=== PATIENT | female | born 1945 | race African-American/Black ===

== ENCOUNTER 2017-11-28 07:45 | Inpatient (IN) | payer MEDICARE, OTHER ==
[2017-11-28] VITALS (16 sets, daily range): BP systolic 97–209; BP diastolic 44–93; PULSE 64–130; RESP 8–22; TEMP 97.7–98.6; O2SAT 95–100
[~2017-11-28] VITALS: Ht 167.6 cm; Wt 103.1 kg
[~2017-11-28 07:45] MED LIST: AMLO5TAB96 PO; ASPI81 PO; BUME1TAB PO; CLOP75 PO; GABA100C4 PO; GLIP5 PO; GUAN1TAB PO; LORT5TAB PO; METO25CR OR; RISP0.252 OR; SINE25TA PO
[2017-11-28] MEDS ORDERED: SODI650T PO (08:06)
[2017-11-28] MEDS ORDERED: SEVEL800 PO (08:06)
[2017-11-28] MEDS ORDERED: VITA2000 PO (08:06)
[2017-11-28] MEDS ORDERED: FURO40TA PO (08:06)
[2017-11-28] MEDS ORDERED: METO100T PO (08:06)
[2017-11-28] MEDS ORDERED: SENS90TA PO (08:06)
--- NOTE | 2017-11-28 08:44 | PD ---
HPI Chief Complaint: Bleeding Time Seen by Provider: 08:02 Travel History International Travel<30 days: No Contact w/Intl Traveler<30days: No Traveled to known affect area: No History of Present Illness HPI The patient is a 72-year-old [place] female who presents emergency department for bleeding from a right upper extremity AV fistula. The patient had a fistula placed in [address] Handley. The patient goes to dialysis on Tuesdays, , and Saturdays. The family thinks that the patient's rn intern is Dr. Wright. The patient had dialysis yesterday, noticed bleeding from the right upper extremity earlier today. They did apply dressings to the affected area prior to arrival. The patient denies taking any anticoagulants. She denies any pain from the affected area, but does note the bleeding was brisk. She denies any chest pain, shortness of breath, nausea, vomiting, or abdominal pain. The patient currently has a home health care doctor that sees her at the house, she no longer sees Dr. Wynn. [facility] Past Medical History Arthritis: No Asthma: No Autoimmune Disease: No Blood Disorders: No Anxiety: No Depression: No Heart Rhythm Problems: No Cancer: No Cardiovascular Problems: Yes (HEART TROUBLE) High Cholesterol: No Chemotherapy: No Chest Pain: Yes Congestive Heart Failure: Yes COPD: No Cerebrovascular Accident: No Diabetes: Yes Patient Takes Glucophage: No Dialysis: Yes (Wed ) Diminished Hearing: No Endocrine: No Glaucoma: No Genitourinary: No Headaches: No Hypertension: Yes Kidney Stones: No Musculoskeletal: No Neurologic: Yes Psychiatric: No Respiratory: Yes (SOB ON EXERTION) Myocardial Infarction: No Radiation Therapy: No Renal Failure: No Seizures: Yes Sickle Cell Disease: No Sleep Apnea: No Thyroid Disease: No Tetanus Vaccination: > 5 Years Influenza Vaccination: No Tubal Ligation: Yes (1975) Past Surgical History Abdominal Surgery: No AICD: No Cardiac Surgery: No Ear Surgery: No Endocrine Surgery: Yes (PT IS A DIABETIC) Eye Surgery: No Genitourinary Surgery: No Gynecologic Surgery: No Oral Surgery: No Pacemaker: No Thoracic Surgery: No Other Surgery: Yes (? CLOSED ARTERIES ON MY LEFT SHOULDER) Social History Alcohol Use: No Tobacco Use: No Substance Use: No Allergies-Medications (Allergen,Severity, Reaction): Coded Allergies: penicillin G (Unverified Allergy, Mild, HIVES, 8/15/17) Reported Meds & Prescriptions Reported Meds & Active Scripts Active Reported Metoprolol Tartrate 100 Mg Tab 100 Mg PO DAILY Vitamin D3 (Cholecalciferol) 2,000 Unit Cap 2,000 Units PO DAILY Renvela (Sevelamer Carbonate) 800 Mg Tab 800 Mg PO TID Sodium Bicarbonate 650 Mg Tab 650 Mg PO BIDPC Sensipar (Cinacalcet) 90 Mg Tab 90 Mg PO DAILY Furosemide 40 Mg Tab 40 Mg PO DAILY Review of Systems Except as stated in HPI: all other systems reviewed are Neg Cardiovascular: No: Chest Pain or Discomfort Respiratory: No: Shortness of Breath Gastrointestinal: No: Nausea, Vomiting, Abdominal Pain Genitourinary: Positive: Decreased Urinary Output (history of end-stage renal disease on hemodialysis) Musculoskeletal: Positive: Other (bleeding from right upper extremity AV fistula) Neurologic: No: Dizziness Physical Exam Narrative GENERAL: Awake, alert, 72 year-old female who appears her stated age and is in no acute respiratory distress. SKIN: Focused skin assessment warm/dry. HEAD: Atraumatic. Normocephalic. EYES: No injection or drainage. ENT: No nasal bleeding or discharge. Mucous membranes pink and moist. NECK: Trachea midline. No JVD. CARDIOVASCULAR: Regular rate and rhythm. No murmur appreciated. RESPIRATORY: No accessory muscle use. Clear to auscultation. Breath sounds equal bilaterally. GASTROINTESTINAL: Abdomen soft, non-tender, nondistended. MUSCULOSKELETAL: Right upper extremity AV fistula with positive thrill and bruit. 1.5 cm circular ulcer on the proximal aspect of the fistula with dry blood on surrounding meningitidis noted. NEUROLOGICAL: Awake and alert. No obvious cranial nerve deficits. Motor grossly within normal limits. Normal speech. PSYCHIATRIC: Appropriate mood and affect; insight and judgment normal. Data Data Last Documented VS Vital Signs Date Time Temp Pulse Resp B/P (MAP) Pulse Ox O2 Delivery O2 Flow Rate FiO2 11/28/17 09:13 98.0 11/28/17 09:11 118 22 99 11/28/17 09:00 Ventilator 100 11/28/17 08:45 2.00 Orders Orders Complete Blood Count With Diff (11/28/17 08:26) Basic Metabolic Panel (Bmp) (11/28/17 08:26) Act Partial Throm Time (Ptt) (11/28/17 08:26) Prothrombin Time / Inr (Pt) (11/28/17 08:26) Type And Screen (11/28/17 08:58) Desmopressin Inj (Ddavp Inj) (11/28/17 09:15) Midazolam Inj (Versed Inj) (11/28/17 09:12) Phenylephrine Inj (Neosynephrine Inj) (11/28/17 09:16) Admit Order (Ed Use Only) (11/28/17 09:18) Consult Vascular Surgery (11/28/17 ) MDM Medical Decision Making Medical Screen Exam Complete: Yes Emergency Medical Condition: Yes Medical Record Reviewed: Yes Differential Diagnosis Differential diagnoses includes coagulopathy, AV fistula bleed, thrombocytopenia , anemia, arterial bleed. Narrative Course IV was established, labs are drawn and sent, and the patient was placed on cardiac telemetry monitoring and continuous pulse oximetry monitoring. The patient's bleeding had resolved upon arrival, I discussed the patient with her vascular surgeon, Dr. Handley. The plan was for the patient to be admitted, permacath to be placed in the right neck, and revision of the right upper AV fistula to be planned. However, the patient had another episode of bleeding that was significant, she had a brief loss of consciousness with subsequent tachycardia and hypertension. The family was removed from the room so resuscitation process could be started. A tight pressure dressing was applied to the right upper extremity. She continued to bleed, tourniquet was applied. The patient did lose consciousness, didn't wake up, was able to open her eyes and follow commands, however, secondary to the hypotension and tachycardia with possible loss of airway, the patient was intubated using rapid sequence intubation. The patient was administered etomidate and rocuronium. The patient was intubated using a 7.[address] Wall, the order editor , was in the room, placed a cordis into the left internal jugular. The patient was administered emergency release blood. Patient was hypotensive, was administered phenylephrine 100 mics intravenously and we administer the patient DDAVP 0.3 mg/kg, total of 30 mg over 30 minutes. I discussed the patient with Dr. Handley, who unfortunately is out of town, he requests that I contact the on- call vascular surgeon. I discussed the patient with Dr. So, who will take the patient to the operating room. The tourniquet time was started. The patient will go to the operating room and then the intensive surgical care unit. I did discuss these findings with the patient's family after the patient was stabilized. Critical Care Narrative Aggregate critical care time was 45 minutes. Time to perform other separately billable procedures was not included in the critical care time. My time did not include minutes spent treating any other patients simultaneously or on activities that did not directly contribute to the patient's treatment. The services I provided to this patient were to treat and/or prevent clinically significant deterioration that could result in: Anoxia, hypoxia, hemorrhage, anemia, shock, . I provided critical care services requiring my management, as noted below: Chart data review, documentation time, medication orders and management, vital sign assessments/reviewing monitor data, ordering and reviewing lab tests, ordering and interpreting/reviewing x-rays and diagnostic studies, care of the patient and discussion of the patient with the admitting physicians. Procedures Procedure Narrative INTUBATION: The patient was put in optimal position for the procedure. Rapid sequence intubation was initiated by me using 20 milligrams of etomidate IV and 100 milligrams of rocuronium IV. The patient was intubated with a 7-5 cuffed endotracheal tube. Tube placement was confirmed by visualization of the tube and balloon passing through the cords, capnometry and subsequent chest x-ray. Breath sounds were equal and well aerated bilaterally postintubation. No breath sounds over stomach. Patient tolerated procedure well. Physician Communication Physician Communication I discussed the patient with Dr. Sampson and the vascular surgeon, Dr. oS Diagnosis Primary Impression: Hemorrhage of arteriovenous fistula Qualified Codes: T82.838A - Hemorrhage due to vascular prosthetic devices, implants and grafts, initial encounter Admitting Information Admitting Physician Requests: Admit Condition: Critical Nadir Gottlieb MD Nov 28, 2017 08:44
[2017-11-28] MEDS ORDERED: MIDAZOLAM HCL 5 MG/ML VIAL (1 ML) ONE (09:12)
[2017-11-28] MEDS ORDERED: DESMOPRESSIN ACETATE 4 MCG/ML VIAL IV ONE (09:15)
[2017-11-28] MEDS ORDERED: PHENYLEPHRINE HCL 10 MG/ML VIAL ONE ×3 (09:16→18:57)
[2017-11-28] MEDS ORDERED: CALCIUM CHLORIDE 10% SOLN 1 GRAM/10 ML SYR ONE (09:25)
[2017-11-28 09:36] LABS: AUTOMATED NEUTROPHIL # 6.6 TH/MM3 (1.8-7.7); BASOPHIL # 0.1 TH/MM3 (0-0.2); BASOPHIL % 0.7 % (0.0-2.0); EOSINOPHIL # 0.4 TH/MM3 (0-0.4); EOSINOPHIL % 2.8 % (0.0-4.0); HEMATOCRIT 31.9 % (35.0-46.0); HEMOGLOBIN 10.7 GM/DL (11.6-15.3); LYMPH % 35.3 % (9.0-44.0); LYMPHOCYTE # 4.4 TH/MM3 (1.0-4.8); MEAN CELL VOLUME 84.6 FL (80.0-100.0); MEAN CORPUSCULAR HEMOGLOBIN 28.5 PG (27.0-34.0); MEAN CORPUSCULAR HGB CONC 33.7 % (32.0-36.0); MEAN PLATELET VOLUME 9.2 FL (7.0-11.0); MONO % 8.6 % (0.0-8.0); MONOCYTE # 1.1 TH/MM3 (0-0.9); NEUT % 52.6 % (16.0-70.0); PLATELET COUNT 265 TH/MM3 (150-450); RED BLOOD COUNT 3.77 MIL/MM3 (4.00-5.30); RED CELL DISTRIBUTION WIDTH 16.2 % (11.6-17.2); WHITE BLOOD COUNT 12.5 TH/MM3 (4.0-11.0)
[2017-11-28] MEDS ORDERED: ceFAZolin INJ 1,000 MG VIAL ONE (09:44)
[2017-11-28 09:45] LABS: INTERNATIONAL NORMALIZED RATIO 1.1 RATIO; PROTHROMBIN TIME - PATIENT 10.7 SEC (9.8-11.6)
[2017-11-28] MEDS ORDERED: THROMBIN (TOPICAL) 5,000 UNIT VIAL ONE (09:46)
[2017-11-28] MEDS ORDERED: GELFOAM SIZE 100 ONE (09:46)
[2017-11-28] MEDS ORDERED: PROTAMINE SULFATE 50 MG/5 ML VIAL ONE (09:46)
[2017-11-28] MEDS ORDERED: HEPARIN SODIUM - SQ 10,000 UNITS/ML VIAL ONE (09:46)
[2017-11-28 10:08] LABS: BICARBONATE 24.6 MEQ/L (21.0-32.0); CALCIUM 9.3 MG/DL (8.5-10.1); CREATININE 5.96 MG/DL (0.50-1.00)
[2017-11-28] MEDS: PHENYLEPHRINE 40 MG in D5W 500 ML IV PRN (11:00)
[2017-11-28] MEDS ORDERED: TERBUTALINE INJ 1 MG/ML AMP SQ PRN (11:30)
[2017-11-28] MEDS ORDERED: DO NOT ADM ANY ANTICOAGULANT DRUGS PRN (11:30)
[2017-11-28] MEDS ORDERED: LABETALOL HCL 100 MG/20 ML VIAL ONE (11:34)
--- NOTE | 2017-11-28 11:57 | RADRPT ---
EXAM DATE/TIME: 11/28/2017 11:28 [facility] COMPARISON: No previous studies available for comparison. INDICATIONS : ET tube placement. MEDICAL HISTORY : Non-responsive. SURGICAL HISTORY : Non-responsive. ENCOUNTER: Initial ACUITY: 1 day PAIN SCORE: Non-responsive. LOCATION: Bilateral chest FINDINGS: AP portable supine view of the chest is performed. There is an endotracheal tube with the tip identif ied just beyond the level of the clavicles, appropriately positioned. There is tubing identified jasmyne g the midline terminating just above the level of the gastroesophageal junction. This may represent a temperature probe. A proximal port is not identified. There is a vascular graft material identified within the region of the brachiocephalic artery.. The heart size is normal. The lungs appear clear. CONCLUSION: Endotracheal tube appears appropriate in position. The line overlying the middle mediastinum may repr esent a temperature probe. If this is a nasogastric tube and interval advancement is required.. Holly Cochran MD on November 28, 2017 at 11:52 Board Certified Radiologist. This report was verified electronically.
[2017-11-28] MEDS ORDERED: ROCURONIUM INJ 50 MG/5 ML SYRINGE IV PUSH ONE (12:00)
[2017-11-28] MEDS ORDERED: PHENYLEPH/NS 1000 MCG/10 ML SYR IV ONE (12:00)
[2017-11-28] MEDS ORDERED: PROPOFOL 200 MG/20 ML AMP IV ONE (12:00)
[2017-11-28] MEDS ORDERED: LACTATED RINGER'S 1000 ML INJ 1,000 ML IV ONE (12:00)
[2017-11-28] MEDS ORDERED: PHENYLEPHRINE HCL 10 MG/ML VIAL IV ONE (12:00)
[2017-11-28] MEDS ORDERED: LIDOCAINE HCL 1% PF 5 ML SYRINGE OTHER ONE (12:00)
[2017-11-28] MEDS ORDERED: NORMOSOL R INJ 1,000 ML IV ONE (12:00)
[2017-11-28] MEDS ORDERED: ePHEDrine/NS 25 MG/5 ML SYRINGE IV ONE (12:00)
[2017-11-28 12:23] LABS: AUTOMATED NEUTROPHIL # 11.7 TH/MM3 (1.8-7.7); BASOPHIL # 0.1 TH/MM3 (0-0.2); BASOPHIL % 0.4 % (0.0-2.0); BICARBONATE 26.8 MEQ/L (21.0-32.0); CALCIUM 8.8 MG/DL (8.5-10.1); CREATININE 5.68 MG/DL (0.50-1.00); EOSINOPHIL # 0.1 TH/MM3 (0-0.4); EOSINOPHIL % 0.5 % (0.0-4.0); HEMATOCRIT 34.5 % (35.0-46.0); HEMOGLOBIN 11.8 GM/DL (11.6-15.3); LYMPH % 10.8 % (9.0-44.0); LYMPHOCYTE # 1.5 TH/MM3 (1.0-4.8); MEAN CELL VOLUME 83.9 FL (80.0-100.0); MEAN CORPUSCULAR HEMOGLOBIN 28.7 PG (27.0-34.0); MEAN CORPUSCULAR HGB CONC 34.2 % (32.0-36.0); MEAN PLATELET VOLUME 8.9 FL (7.0-11.0); NEUT % 81.3 % (16.0-70.0); PLATELET COUNT 205 TH/MM3 (150-450); RED BLOOD COUNT 4.11 MIL/MM3 (4.00-5.30); RED CELL DISTRIBUTION WIDTH 15.7 % (11.6-17.2); WHITE BLOOD COUNT 14.3 TH/MM3 (4.0-11.0)
[2017-11-28] MEDS ORDERED: PROPOFOL 500 MG/50 ML INJ 50 ML ONE (12:43)
[2017-11-28] MEDS ORDERED: fentaNYL 2,500 MCG/NS 250 ML IV PRN (13:00)
[2017-11-28] MEDS ORDERED: PROPOFOL 1000 MG/100 ML IV PRN (13:00)
[2017-11-28] MEDS: PROPOFOL 1000 MG/100 ML IV PRN (14:17)
[2017-11-28] MEDS ORDERED: MAGNESIUM HYDROXIDE SUSP 30 ML CUP PO PRN (17:45)
[2017-11-28] MEDS ORDERED: CHLORHEXIDINE GLUCONATE 2 % 1 PACK (2 CLOTHS) TOP PRN (17:45)
[2017-11-28] MEDS ORDERED: DEXTROSE 50% IN WATER 50 ML VIAL(D50) IV PUSH PRN (17:45)
[2017-11-28] MEDS ORDERED: ONDANSETRON HCL 4 MG/2 ML VIAL IV PUSH PRN (17:45)
[2017-11-28] MEDS ORDERED: MISCELLANEOUS NURSING INFORMATION XX SCH (17:45)
[2017-11-28] MEDS ORDERED: RESP: ALBUTEROL 2.5 MG/IPRATROPIUM 0.5 MG NEB (PRN) INH (17:45)
[2017-11-28] MEDS ORDERED: ACETAMINOPHEN 325 MG TAB PO PRN (17:45)
--- NOTE | 2017-11-28 17:45 | HHI.HP ---
[facility] Service Critical Care Medicine Primary Care Physician César Vela MD Admission Diagnosis right AV fistula bleed, hypotension Diagnosis: Chief Complaint: bleeding Travel History International Travel<30 Days: No Contact w/Intl Traveler <30 Da: No Traveled to Known Affected Are: No History of Present Illness 72yF with history of ESRD and right arm AVF presented for bleeding from the fistula. Unfortunately, due to the emergent nature of the consult, a complete medical history is unobtainable. I was in the Emergency department when Dr. Gottlieb asked me to assist in this acutely unstable patient. She began rebleeding from the AVF. Her family was quite upset and actually impeding our ability to safely care for the patient, and they were escorted out of the room by security. When we were able to get to the patient, there was at least 1L of blood loss on the floor from an actively bleeding AVF. Immediate pressure was held. patient had lost enough blood that she was hypotensive, hemodynamically unstable, and obtunded. Dr. Gottlieb emergently controlled the airway and intubated the patient. I managed the hemodynamics of the patient, emergently placing introducer sheath for large bore volume access, ordering emergency release 2 units [address]bc. We notified Dr. Jaramillo and emergently transferred the patient to the OR for surgical hemostasis. No additional information is available from the patient due to her clinical condition. Review of Systems ROS Limitations: Clinical Condition, Altered Mental Status, Unresponsive Past Family Social History Allergies: Coded Allergies: penicillin G (Unverified Allergy, Mild, HIVES, 06/01/17) Past Medical History ESRD on IHD, right AVF, T/R/Sa schedule "heart trouble" Congestive heart failure, unknown type Diabetes HTN Dypsnea on exertion seizures Past Surgical History tubal ligation 1970s Reported Medications Metoprolol Tartrate 100 Mg Tab 100 Mg PO DAILY Vitamin D3 (Cholecalciferol) 2,000 Unit Cap 2,000 Units PO DAILY Renvela (Sevelamer Carbonate) 800 Mg Tab 800 Mg PO TID Sodium Bicarbonate 650 Mg Tab 650 Mg PO BIDPC Sensipar (Cinacalcet) 90 Mg Tab 90 Mg PO DAILY Furosemide 40 Mg Tab 40 Mg PO DAILY Active Ordered Medications See MAR Family History unobtainable due to patient's clinical condition Social History denied tob, etoh, doa. Physical Exam Vital Signs Vital Signs Date Time Temp Pulse Resp B/P (MAP) Pulse Ox O2 Delivery O2 Flow Rate FiO2 11/28/17 15:22 100 40 11/28/17 12:24 100 50 11/28/17 12:00 78 12 118/60 (79) 99 Mechanical Ventilator 118/77 (91) 11/28/17 11:45 97.9 79 12 112/54 (73) 99 Mechanical Ventilator 60 121/81 (94) 11/28/17 11:36 92 12 177/69 (105) 99 Mechanical Ventilator 60 145/85 (105) 11/28/17 11:30 113 12 204/77 (119) 97 Mechanical Ventilator 60 196/131 (152) 11/28/17 11:15 86 12 101/55 (70) 97 Mechanical Ventilator 60 91/73 (79) 11/28/17 11:10 86 12 72/49 (57) 100 Mechanical Ventilator 60 69/53 (58) 11/28/17 11:10 86 69/53 11/28/17 11:05 81 81/59 11/28/17 11:01 79 12 115/56 (75) 100 Mechanical Ventilator 60 107/72 (84) 11/28/17 11:00 82 77/56 11/28/17 10:59 82 12 77/56 (63) 100 Mechanical Ventilator 60 86/63 (71) 11/28/17 10:57 96.8 80 12 77/53 (61) 100 Mechanical Ventilator 60 54/42 (46) 11/28/17 09:31 104 18 209/93 (131) 99 Auto-Vent 100 11/28/17 09:30 100 100 11/28/17 09:28 97.9 107 18 183/73 100 11/28/17 09:22 126 67/30 11/28/17 09:13 98.0 11/28/17 09:11 118 22 97/44 99 11/28/17 09:05 95 100 11/28/17 09:00 130 18 99/69 (79) 98 Ventilator 100 11/28/17 08:57 100 11/28/17 08:45 114 8 143/69 (93) 98 Nasal Cannula 2.00 11/28/17 08:06 80 16 147/64 (91) 97 Room Air 11/28/17 07:47 97.7 87 17 133/63 (86) 100 Physical Exam GENERAL: Obese female, lying in bed, obtunded, in acute distress, right AV fistula bleeding with active hemorrhage HEENT: Normocephalic. Atraumatic. Pupils equal, round, reactive, conjugate. Mucous membranes are moist NECK: Trachea is midline. There is no JVD. CHEST: Labored agonal respirations. CARDIOVASCULAR: Tachycardic rate, hypotensive. ABDOMEN: Soft, nontender, nondistended. No guarding. MUSCULOSKELETAL: Pulses 2+. No peripheral edema. Right arm AV fistula with what appears to be approximately 1 cm ulceration with active hemorrhage which appears to be arterial in nature. NEUROLOGICAL: RASS -4. Obtunded. Laboratory Laboratory Tests Test 11/28/17 09:20 11/28/17 09:50 11/28/17 11:49 11/28/17 12:20 White Blood Count 12.5 14.3 Red Blood Count 3.77 4.11 Hemoglobin 10.7 11.8 Hematocrit 31.9 34.5 Mean Corpuscular Volume 84.6 83.9 Mean Corpuscular Hemoglobin 28.5 28.7 Mean Corpuscular Hemoglobin Concent 33.7 34.2 Red Cell Distribution Width 16.2 15.7 Platelet Count 265 205 Mean Platelet Volume 9.2 8.9 Neutrophils (%) (Auto) 52.6 81.3 Lymphocytes (%) (Auto) 35.3 10.8 Monocytes (%) (Auto) 8.6 7.0 Eosinophils (%) (Auto) 2.8 0.5 Basophils (%) (Auto) 0.7 0.4 Neutrophils # (Auto) 6.6 11.7 Lymphocytes # (Auto) 4.4 1.5 Monocytes # (Auto) 1.1 1.0 Eosinophils # (Auto) 0.4 0.1 Basophils # (Auto) 0.1 0.1 CBC Comment DIFF FINAL DIFF FINAL Differential Comment Prothrombin Time 10.7 Prothromb Time International Ratio 1.1 Activated Partial Thromboplast Time 24.3 Blood Urea Nitrogen 26 25 Creatinine 5.96 5.68 Random Glucose 157 141 Calcium Level 9.3 8.8 Sodium Level 137 138 Potassium Level 4.2 4.1 Chloride Level 101 102 Carbon Dioxide Level 24.6 26.8 Anion Gap 11 9 Estimat Glomerular Filtration Rate 8 9 Blood Gas Puncture Site CL ART LINE Blood Gas Patient Temperature 98.6 98.6 Blood Gas HCO3 21 24 Blood Gas Base Excess -3.8 -1.1 Blood Gas Oxygen Saturation 98 97 Arterial Blood pH 7.36 7.37 Arterial Blood Partial Pressure CO2 38 41 Arterial Blood Partial Pressure O2 314 151 Arterial Blood Oxygen Content 19.9 16.0 Arterial Blood Carboxyhemoglobin 0.5 1.0 Arterial Blood Methemoglobin 1.3 1.1 Blood Gas Hemoglobin 14.0 11.5 Oxygen Delivery Device VENTILATOR VENTILATOR Blood Gas Ventilator Setting AC/VT550/R8/P5 PRVC/AC Blood Gas Inspired Oxygen 60 50 Test 11/28/17 13:00 Nasal Screen MRSA (PCR) MRSA NOT DETECTED Result Diagram: 11/28/17 1149 11/28/17 1149 Caprini VTE Risk Assessment Caprini VTE Risk Assessment: Mod/High Risk (score >= 2) Caprini Risk Assessment Model Point Value = 1 Point Value = 2 Point Value = 3 Point Value = 5 Age 41-60 Minor surgery BMI > 25 kg/m2 Swollen legs Varicose veins or History of unexplained or recurrent spontaneous Oral contraceptives or hormone replacement Sepsis (< 1 month) Serious lung disease, including pneumonia (< 1 month) Abnormal pulmonary function Acute myocardial infarction Congestive heart failure (< 1 month) History of inflammatory bowel disease Medical patient at bed rest Age 61-74 Arthroscopic surgery Major open surgery (> 45 min) Laparoscopic surgery (> 45 min) Malignancy Confined to bed (> 72 hours) Immobilizing plaster cast Central venous access Age >= 75 History of VTE Family history of VTE Factor V Leiden Prothrombin [id number] Lupus anticoagulant Anticardiolipin antibodies Elevated serum homocysteine Heparin-induced thrombocytopenia Other congenital or acquired thrombophilia Stroke (< 1 month) Elective arthroplasty Hip, pelvis, or leg fracture Acute spinal cord injury (< 1 month) Prophylaxis Regimen Total Risk Factor Score Risk Level Prophylaxis Regimen 0-1 Low Early ambulation 2 Moderate Order ONE of the following: *Sequential Compression Device (SCD) *Heparin 5000 units SQ BID 3-4 Higher Order ONE of the following medications: *Heparin 5000 units SQ TID *Enoxaparin/Lovenox 40 mg SQ daily (WT < 150 kg, CrCl > 30 mL/min) *Enoxaparin/Lovenox 30 mg SQ daily (WT < 150 kg, CrCl > 10-29 mL/min) *Enoxaparin/Lovenox 30 mg SQ BID (WT < 150 kg, CrCl > 30 mL/min) AND/OR *Sequential Compression Device (SCD) 5 or more Highest Order ONE of the following medications: *Heparin 5000 units SQ TID (Preferred with Epidurals) *Enoxaparin/Lovenox 40 mg SQ daily (WT < 150 kg, CrCl > 30 mL/min) *Enoxaparin/Lovenox 30 mg SQ daily (WT < 150 kg, CrCl > 10-29 mL/min) *Enoxaparin/Lovenox 30 mg SQ BID (WT < 150 kg, CrCl > 30 mL/min) AND *Sequential Compression Device (SCD) Assessment and Plan Assessment and Plan Assessment: 72-year-old female with end-stage renal disease and old AV fistula in the right arm with ulcerated area with active arterial hemorrhage, hemodynamically unstable. Taken emergently to the OR. Critically ill. Active problems: ESRD on IHD wednesday//wednesday Uremic platelet dysfunction Hemorrhagic Shock Anemia secondary to acute blood loss Acute metabolic encephalopathy Acute hypoxic and hypercarbic respiratory failure plan: remain intubated and sedated frequent neuro checks serial h&h transfuse for goal hgb > 7 ddavp, 0.3 mcg/kg for uremic platelet dysfunction wean vasopressors as tolerated for goal map > 65 mmHg. abg admit to ICU. nebs, vent bundle, elevated hob wean fio2 for goal spo2 > 90% IR for permacath placement SCDs, hold pharmacologic DVT prophylaxis today. pepcid. This patient remains critically ill with one or more organ systems which are or may become a threat to life. I have spent in excess of 55 minutes discontinuously in the care and management of this patient. This time is in time and space from any other providers documented critical care time. This time is exclusive of procedures, and includes, but is not limited to , evaluation of the patient, review of the medical record, discussions with family, consultants, nursing staff, or respiratory therapy, and documentation in the medical record. Sunny Sampson MD Nov 28, 2017 17:45
--- NOTE | 2017-11-28 17:47 | PD.PROCEDR ---
Procedure Note Procedure Central Line Procedure Note Left IJ 9 Indian 10 cm Mac introducer sheath Diagnosis: Hemorrhagic shock Indications: Hemorrhagic shock with need for rapid volume administration Consent: Emergent Anesthesia: none Description of the Procedure: The patient was placed in the supine, mild- Trendelenburg position. The area was prepped and draped sterilely. A 19g needle was inserted under negative pressure aspiration and dark venous blood was obtained. A guidewire was inserted easily without resistance. A small incision was made using a #11 blade. Using a modified Seldinger technique, the dilator and 9 Indian, 10 cm catheter were advanced over the guidewire without resistance. All ports were aspirated and flushed, and had brisk blood return. The line was secured at the skin using 2-0 silk interrupted sutures. A Biopatch and Transparent sterile dressing were applied. There were no immediate complications noted. There was minimal EBL. The patient tolerated the procedure well. Ultrasound Guidance: Ultrasound guidance was used to identify the left internal jugular vein. The vascular anatomy of the left anterior neck was normal. The vessel was cannulated under direct, real-time ultrasound visualization. After placement of the guidewire, confirmation of the guidewire in the lumen of the vessel was made using ultrasound visualization, before dilation of the tract. A Chest x-ray has been ordered. I personally performed the procedure. Sunny Sampson MD Nov 28, 2017 17:47
[2017-11-28] MEDS ORDERED: SODIUM CHLOR 0.9% 1000 ML INJ 1,000 ML IV SCH (18:00)
[2017-11-28] MEDS: INSULIN NovoLIN REGULAR SUPPLEMENTAL SCALE SQ SCH (18:00)
[2017-11-28] MEDS: RESP: ALBUTEROL 2.5 MG/IPRATROPIUM 0.5 MG NEB (SCH) INH (20:02)
[2017-11-28] MEDS: DOCUSATE SODIUM 50 MG/SENNA 8.6 MG TAB PO SCH (20:09)
[2017-11-28] MEDS: FAMOTIDINE 20 MG/2 ML VIAL IV PUSH SCH (21:31)
[2017-11-28 22:01] LABS: HEMATOCRIT 32.2 % (35.0-46.0); HEMOGLOBIN 10.9 GM/DL (11.6-15.3)
[2017-11-29] VITALS (13 sets, daily range): BP systolic 110–144; BP diastolic 58–76; PULSE 74–104; RESP 13–18; TEMP 98.6–99.3; O2SAT 94–100
[2017-11-29] MEDS: PROPOFOL 1000 MG/100 ML IV PRN ×2 (00:07→05:05)
[2017-11-29] MEDS: CHLORHEXIDINE GLUCONATE 2 % 1 PACK (2 CLOTHS) TOP SCH ×2 (03:21→19:45)
[2017-11-29] MEDS: RESP: ALBUTEROL 2.5 MG/IPRATROPIUM 0.5 MG NEB (SCH) INH ×4 (03:53→21:52)
[2017-11-29 04:57] LABS: HEMATOCRIT 30.5 % (35.0-46.0); HEMOGLOBIN 10.7 GM/DL (11.6-15.3); MEAN CELL VOLUME 82.5 FL (80.0-100.0); MEAN CORPUSCULAR HEMOGLOBIN 28.8 PG (27.0-34.0); MEAN CORPUSCULAR HGB CONC 34.9 % (32.0-36.0); MEAN PLATELET VOLUME 8.9 FL (7.0-11.0); PLATELET COUNT 209 TH/MM3 (150-450); RED CELL DISTRIBUTION WIDTH 15.9 % (11.6-17.2); WHITE BLOOD COUNT 13.4 TH/MM3 (4.0-11.0)
[2017-11-29] MEDS: INSULIN NovoLIN REGULAR SUPPLEMENTAL SCALE SQ SCH ×4 (05:23→17:51)
[2017-11-29 05:27] LABS: BICARBONATE 24.5 MEQ/L (21.0-32.0); CALCIUM 8.1 MG/DL (8.5-10.1); CREATININE 6.73 MG/DL (0.50-1.00)
[2017-11-29] MEDS: PHENYLEPHRINE 40 MG in D5W 500 ML IV PRN (05:38)
--- NOTE | 2017-11-29 08:17 | HHI.CCPN ---
Subjective Remarks/Hospital Course Hospital Course: 72yF with history of ESRD and right arm AVF presented for bleeding from the fistula. Unfortunately, due to the emergent nature of the consult, a complete medical history is unobtainable. I was in the Emergency department when Dr. Gottlieb asked me to assist in this acutely unstable patient. She began rebleeding from the AVF. Her family was quite upset and actually impeding our ability to safely care for the patient, and they were escorted out of the room by security. When we were able to get to the patient, there was at least 1L of blood loss on the floor from an actively bleeding AVF. Immediate pressure was held. patient had lost enough blood that she was hypotensive, hemodynamically unstable, and obtunded. Dr. Gottlieb emergently controlled the airway and intubated the patient. I managed the hemodynamics of the patient, emergently placing introducer sheath for large bore volume access, ordering emergency release 2 units prbc. We notified Dr. Jaramillo and emergently transferred the patient to the OR for surgical hemostasis. No additional information is available from the patient due to her clinical condition. subjective: 11/29: to OR yesterday for ligation of AVF. today remains intubated. will need permacath for dialysis. hgb stable. Objective Vital Signs Date Time Temp Pulse Resp B/P (MAP) Pulse Ox O2 Delivery O2 Flow Rate FiO2 11/29/17 07:25 40 11/29/17 07:00 99 Mechanical Ventilator 11/29/17 06:00 78 11/29/17 05:38 114/66 11/29/17 04:00 99.1 13 11/28/17 08:45 2.00 Intake and Output 11/29/17 11/29/17 11/30/17 08:00 16:00 00:00 Intake Total 700 ml Output Total 30 ml Balance 670 ml Result Diagram: 11/29/17 0435 11/29/17 0435 Other Results Laboratory Tests Test 11/28/17 09:50 11/28/17 12:20 Blood Gas Puncture Site CL ART LINE Blood Gas Patient Temperature 98.6 98.6 Blood Gas HCO3 21 mmol/L (22-26) 24 mmol/L (22-26) Blood Gas Base Excess -3.8 mmol/L (-2-2) -1.1 mmol/L (-2-2) Blood Gas Oxygen Saturation 98 % (90-100) 97 % (90-100) Arterial Blood pH 7.36 (7.380-7.420) 7.37 (7.380-7.420) Arterial Blood Partial Pressure CO2 38 mmHg (38-42) 41 mmHg (38-42) Arterial Blood Partial Pressure O2 314 mmHg (61-120) 151 mmHg (61-120) Arterial Blood Oxygen Content 19.9 Vol % (12.0-20.0) 16.0 Vol % (12.0-20.0) Arterial Blood Carboxyhemoglobin 0.5 % (0-4) 1.0 % (0-4) Arterial Blood Methemoglobin 1.3 % (0-2) 1.1 % (0-2) Blood Gas Hemoglobin 14.0 G/DL (12.0-16.0) 11.5 G/DL (12.0-16.0) Oxygen Delivery Device VENTILATOR VENTILATOR Blood Gas Ventilator Setting AC/VT550/R8/P5 PRVC/AC Blood Gas Inspired Oxygen 60 % 50 % Objective Remarks GENERAL: Obese female, lying in bed, intubated, sedated. HEENT: Normocephalic. Atraumatic. Pupils equal, round, reactive, conjugate. Mucous membranes are moist NECK: Trachea is midline. There is no JVD. CHEST: PSV 12/5/40%. equal chest rise. CARDIOVASCULAR: normal rate, regular rhythm. ABDOMEN: Soft, nontender, nondistended. No guarding. MUSCULOSKELETAL: Pulses 2+. No peripheral edema. Right arm AV fistula wrapped in tracey bandage which is dry, no evidence of ongoing bleeding. NEUROLOGICAL: RASS -2. follows commands. A/P Assessment and Plan Assessment: 72-year-old female with end-stage renal disease and old AV fistula in the right arm with ulcerated area with active arterial hemorrhage, now s/p emergent fistula ligation 11/28. clinically improving. will wean to extubate. will need permacath today. will consult nephrology to follow along. Active problems: ESRD on IHD wednesday//wednesday Uremic platelet dysfunction Hemorrhagic Shock - resolved. Anemia secondary to acute blood loss Acute metabolic encephalopathy- resolving. Acute hypoxic and hypercarbic respiratory failure - resolving. plan: wean to extubate advance diet after extubation IR consult for permacath placement nephrology consult to follow along Dr. jaramillo from vascular surgery consulted. wean fio2 for goal spo2 > 90% SCDs, restart DVT prophylaxis. janis. Sunny Sampson MD Nov 29, 2017 08:17
[2017-11-29] MEDS ORDERED: HYDROmorphone HCL PF 2 MG/ML VIAL IV PUSH PRN (08:30)
[2017-11-29] MEDS: HEPARIN SODIUM - SQ 10,000 UNITS/ML VIAL SQ SCH ×2 (08:50→21:00)
[2017-11-29] MEDS: DOCUSATE SODIUM 50 MG/SENNA 8.6 MG TAB PO SCH ×2 (08:50→21:00)
[2017-11-29] MEDS ORDERED: VANCOMYCIN INJ 1,000 MG in SODIUM CHLOR 0.9% 250 ML INJ 250 ML IV SCH (09:15)
[2017-11-29] MEDS ORDERED: SODIUM CHLOR 0.9% 1000 ML INJ 1,000 ML OTHER PRN ×2 (09:58)
[2017-11-29] MEDS ORDERED: SODIUM CHLOR 0.9% 1000 ML INJ 1,000 ML IV PRN (09:58)
[2017-11-29] MEDS ORDERED: HEPARIN SODIUM - IV 10,000 UNITS/10 ML VIAL IV FLUSH PRN (10:00)
[2017-11-29] MEDS ORDERED: SODIUM CHLORIDE 0.9% FLUSH 10 ML FLUSH IV FLUSH PRN ×2 (10:00→14:45)
[2017-11-29] MEDS ORDERED: MANNITOL 12.5 GM/50 ML VIAL IV PRN (10:00)
[2017-11-29] MEDS ORDERED: GELATIN 12 MM/7 MM FOAM TOP PRN (10:00)
[2017-11-29] MEDS ORDERED: HEPARIN SODIUM - IV 10,000 UNITS/10 ML VIAL PRN (10:00)
[2017-11-29] MEDS ORDERED: NITROGLYCERIN 0.4 MG SL 25 TABS/BTL SL PRN (10:00)
[2017-11-29] MEDS ORDERED: GENTAMICIN SULFATE 20 MG/2 ML VIAL OTHER PRN (10:00)
[2017-11-29] MEDS ORDERED: ACETAMINOPHEN 325 MG TAB PO PRN (10:00)
[2017-11-29] MEDS ORDERED: diphenhydrAMINE HCL 25 MG CAP PO PRN (10:00)
[2017-11-29] MEDS ORDERED: ONDANSETRON HCL 4 MG/2 ML VIAL IV PUSH PRN (10:00)
[2017-11-29] MEDS ORDERED: cloNIDine HCL 0.1 MG TAB PO PRN (10:00)
[2017-11-29] MEDS ORDERED: ALBUMIN 25% INJ 100 ML IV PRN (10:00)
--- NOTE | 2017-11-29 10:06 | PD.CONS ---
HPI Service Nephrology Consult Requested By Reason for Consult ESRD on HD, AVF problem Primary Care Physician César Vela MD History of Present Illness This is a very nice 72 y/o AAF patient. She is on HD TTS, had full treatment Wednesday. Came in yesterday for bleeding from AVF. She was emergently intubated , given blood products, and taken to OR by vascular for ligation of AVF. She has a VC IJ and is NPO for Permcath placement today. Her family is at the bedside. She is not in distress, was extubated, and overall is doing well. (Laura Givens) Review of Systems Constitutional: COMPLAINS OF: Fatigue, DENIES: Fever, Weight loss Gastrointestinal: DENIES: Abdominal pain Musculoskeletal: COMPLAINS OF: Muscle aches (Laura Givens) Past Family Social History Allergies: Coded Allergies: penicillin G (Unverified Allergy, Mild, HIVES, 06/01/17) Past Medical History ESRD on HD TTS CHF Diabetes HTN Obesity Metabolic Bone disorder seizures Past Surgical History Tubal AVF right arm Reported Medications Metoprolol Tartrate 100 Mg Tab 100 Mg PO DAILY Vitamin D3 (Cholecalciferol) 2,000 Unit Cap 2,000 Units PO DAILY Renvela (Sevelamer Carbonate) 800 Mg Tab 800 Mg PO TID Sodium Bicarbonate 650 Mg Tab 650 Mg PO BIDPC Sensipar (Cinacalcet) 90 Mg Tab 90 Mg PO DAILY Furosemide 40 Mg Tab 40 Mg PO DAILY Active Ordered Medications Current Medications Medications (Trade) Dose Ordered Sig/Alix Route Start Time Stop Time Status Last Admin Miscellaneous Information ALL NURSING DEPARTME... UNSCH PRN .XX 11/28/17 11:30 11/29/17 11:29 (D50w (Vial) Inj) 25 ml UNSCH PRN IV PUSH 11/28/17 17:45 (NovoLIN R SUPPLEMENTAL SCALE) 1 Q6HR SQ 11/28/17 18:00 (Duoneb Neb) 1 ampule Q6HR NEB INH 11/28/17 22:00 11/29/17 08:25 (Duoneb Neb) 1 ampule Q2HR NEB PRN INH 11/28/17 17:45 (Tylenol) 650 mg Q6H PRN PO 11/28/17 17:45 (Pepcid Inj) 20 mg HS IV PUSH 11/28/17 21:00 11/28/17 21:31 (Zofran Inj) 4 mg Q6H PRN IV PUSH 11/28/17 17:45 Miscellaneous Information 1 Q361D XX 11/28/17 17:45 11/28/17 17:45 (Chlorhexidine 2% Cloth) 3 pack Taper DAILY@04 TOP 11/29/17 04:00 11/25/18 03:59 (Chlorhexidine 2% Cloth) 3 pack UNSCH PRN TOP 11/28/17 17:45 (Andreea-Colace) 1 tab BID PO 11/28/17 21:00 11/29/17 08:50 (Milk Of Magnesia Liq) 30 ml Q12H PRN PO 11/28/17 17:45 (Heparin Inj) 5,000 units Q12HR SQ 11/29/17 09:00 11/29/17 08:50 (Dilaudid Pf Inj) 0.5 mg Q4H PRN IV PUSH 11/29/17 08:30 Vancomycin HCl 1000 mg/Sodium Chloride 250 ml @ 250 mls/hr 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 MILL 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 IV 11/29/17 09:15 12/02/17 09:14 Sodium Chloride 1,000 ml @ 0 mls/hr Q0M PRN OTHER 11/29/17 09:58 (Heparin Inj) 8,000 units UNSCH PRN IV FLUSH 11/29/17 10:00 Sodium Chloride 1,000 ml @ 200 mls/hr Q5H PRN IV 11/29/17 09:58 Sodium Chloride 1,000 ml @ 0 mls/hr Q0M PRN OTHER 11/29/17 09:58 (Mannitol Inj) 12.5 gm UNSCH PRN IV 11/29/17 10:00 Albumin Human 100 ml @ 60 mls/hr UNSCH PRN IV 11/29/17 10:00 (NS Flush) 5 ml UNSCH PRN IV FLUSH 11/29/17 10:00 (Heparin Inj) UNSCH PRN .XX 11/29/17 10:00 (Gentamicin Inj) 20 mg UNSCH PRN OTHER 11/29/17 10:00 (Zofran Inj) 4 mg UNSCH PRN IV PUSH 11/29/17 10:00 (Tylenol) 650 mg UNSCH PRN PO 11/29/17 10:00 (Benadryl) 25 mg UNSCH PRN PO 11/29/17 10:00 (Nitrostat Sl) 0.4 mg UNSCH PRN SL 11/29/17 10:00 (Catapres) 0.1 mg UNSCH PRN PO 11/29/17 10:00 (Gelfoam 12 Mm/7 Mm Top) 1 foam UNSCH PRN TOP 11/29/17 10:00 Family History Non contributory Social History Non smoker Lives at home full code (Laura Givens) Physical Exam Vital Signs Vital Signs Date Time Temp Pulse Resp B/P (MAP) Pulse Ox O2 Delivery O2 Flow Rate FiO2 11/29/17 08:27 100 Nasal Cannula 2 11/29/17 08:05 Nasal Cannula 28 40 11/29/17 08:00 40 11/29/17 08:00 99.1 83 15 122/76 (91) 100 11/29/17 07:25 40 11/29/17 07:00 99 Mechanical Ventilator 30 11/29/17 06:00 78 11/29/17 05:38 80 114/66 11/29/17 04:00 99.1 75 13 115/67 (83) 100 11/29/17 04:00 75 11/29/17 04:00 40 11/29/17 03:54 100 30 11/29/17 02:00 74 11/29/17 01:03 100 30 11/29/17 00:00 40 11/29/17 00:00 98.6 74 14 114/68 (83) 100 11/29/17 00:00 74 11/28/17 22:00 67 11/28/17 20:00 64 11/28/17 20:00 40 11/28/17 20:00 98.6 64 14 106/60 (75) 100 11/28/17 19:58 100 35 11/28/17 19:00 99 Mechanical Ventilator 40 11/28/17 15:22 100 40 11/28/17 12:24 100 50 11/28/17 12:15 100 100 11/28/17 12:00 78 12 118/60 (79) 99 Mechanical Ventilator 118/77 (91) 11/28/17 11:45 97.9 79 12 112/54 (73) 99 Mechanical Ventilator 60 121/81 (94) 11/28/17 11:36 92 12 177/69 (105) 99 Mechanical Ventilator 60 145/85 (105) 11/28/17 11:30 113 12 204/77 (119) 97 Mechanical Ventilator 60 196/131 (152) 11/28/17 11:15 86 12 101/55 (70) 97 Mechanical Ventilator 60 91/73 (79) 11/28/17 11:10 86 12 72/49 (57) 100 Mechanical Ventilator 60 69/53 (58) 11/28/17 11:10 86 69/53 11/28/17 11:05 81 81/59 11/28/17 11:01 79 12 115/56 (75) 100 Mechanical Ventilator 60 107/72 (84) 11/28/17 11:00 82 77/56 11/28/17 10:59 82 12 77/56 (63) 100 Mechanical Ventilator 60 86/63 (71) 11/28/17 10:57 96.8 80 12 77/53 (61) 100 Mechanical Ventilator 60 54/42 (46) Physical Exam AAF patient, obese, awake follows commands S1/S2, RRR no murmurs Lungs clear Abd round, soft, non tender Ext: no edema Lyman in place, anuric Laboratory Laboratory Tests Test 11/28/17 11:49 11/28/17 12:20 11/28/17 13:00 11/28/17 20:36 White Blood Count 14.3 Red Blood Count 4.11 Hemoglobin 11.8 10.9 Hematocrit 34.5 32.2 Mean Corpuscular Volume 83.9 Mean Corpuscular Hemoglobin 28.7 Mean Corpuscular Hemoglobin Concent 34.2 Red Cell Distribution Width 15.7 Platelet Count 205 Mean Platelet Volume 8.9 Neutrophils (%) (Auto) 81.3 Lymphocytes (%) (Auto) 10.8 Monocytes (%) (Auto) 7.0 Eosinophils (%) (Auto) 0.5 Basophils (%) (Auto) 0.4 Neutrophils # (Auto) 11.7 Lymphocytes # (Auto) 1.5 Monocytes # (Auto) 1.0 Eosinophils # (Auto) 0.1 Basophils # (Auto) 0.1 CBC Comment DIFF FINAL Differential Comment Blood Urea Nitrogen 25 Creatinine 5.68 Random Glucose 141 Calcium Level 8.8 Sodium Level 138 Potassium Level 4.1 Chloride Level 102 Carbon Dioxide Level 26.8 Anion Gap 9 Estimat Glomerular Filtration Rate 9 Blood Gas Puncture Site ART LINE Blood Gas Patient Temperature 98.6 Blood Gas HCO3 24 Blood Gas Base Excess -1.1 Blood Gas Oxygen Saturation 97 Arterial Blood pH 7.37 Arterial Blood Partial Pressure CO2 41 Arterial Blood Partial Pressure O2 151 Arterial Blood Oxygen Content 16.0 Arterial Blood Carboxyhemoglobin 1.0 Arterial Blood Methemoglobin 1.1 Blood Gas Hemoglobin 11.5 Oxygen Delivery Device VENTILATOR Blood Gas Ventilator Setting PRVC/AC Blood Gas Inspired Oxygen 50 Nasal Screen MRSA (PCR) MRSA NOT DETECTED Test 11/29/17 04:35 White Blood Count 13.4 Red Blood Count 3.70 Hemoglobin 10.7 Hematocrit 30.5 Mean Corpuscular Volume 82.5 Mean Corpuscular Hemoglobin 28.8 Mean Corpuscular Hemoglobin Concent 34.9 Red Cell Distribution Width 15.9 Platelet Count 209 Mean Platelet Volume 8.9 Blood Urea Nitrogen 31 Creatinine 6.73 Random Glucose 84 Calcium Level 8.1 Sodium Level 138 Potassium Level 4.6 Chloride Level 104 Carbon Dioxide Level 24.5 Anion Gap 10 Estimat Glomerular Filtration Rate 7 (Luara Givens) Result Diagram: 11/29/17 0435 11/29/17 0435 Imaging Last 72 hours Impressions Chest X-Ray 11/28/17 0000 Signed Impressions: Service Date/Time: Tuesday, November 28, 2017 11:28 - CONCLUSION: Endotracheal tube appears appropriate in position. The line overlying the middle mediastinum may represent a temperature probe. If this is a nasogastric tube and interval advancement is required.. Holly Cochran MD (Laura Givens) Assessment and Plan Problem List: (1) ESRD (end stage renal disease) ICD Codes: N18.6 - End stage renal disease Plan: HD TTS, due tomorrow Awaiting Permcath placement today Check phosphorus level Avoid IVF administration Remove lyman catheter (2) Hemorrhage of arteriovenous fistula ICD Codes: T82.838A - Hemorrhage due to vascular prosthetic devices, implants and grafts, initial encounter Status: Acute Plan: Vascular ligated, awaiting surgery report will need Permcath and possibly new fistula at a later date (3) Anemia ICD Codes: D64.9 - Anemia, unspecified Plan: Transfused urgently yesterday Hb is acceptable (Laura Givens) Assessment and Plan patient was seen and examined. Surgery operative note reviewed. s/p repair of bleeding AVF. PermCath placement, which will be used for dialysis. Dialysis tomorrow. Monitor for more bleeding. Monitor phosphorus. (Redd Dias MD) Problem Qualifiers (1) Hemorrhage of arteriovenous fistula: Qualified Codes: T82.838A - Hemorrhage due to vascular prosthetic devices, implants and grafts, initial encounter Laura Givens Nov 29, 2017 10:06 Redd Dias MD Nov 29, 2017 19:22
--- NOTE | 2017-11-29 10:41 | PD.CAR.PN ---
CVT Progress Note Subjective/Hospital Course: 11/29/2017 Patient is status post repair of a torn right arm AV fistula Unfortunately there are a number of areas along the graft which are now bulging out and the results of regular graft use As the time goes by eventually even the best grafts will have to be sacrificed At this point this looks okay and I will keep the dressing on for another day then we going to look if this is healing nicely In the meantime patient will need different access for dialysis in the form of a temporary indwelling catheter I discussed this with Dr. Handley who constructed this long-lasting graft and he will come by Nothing to add to care right now Objective: Vital Signs Date Time Temp Pulse Resp B/P (MAP) Pulse Ox O2 Delivery O2 Flow Rate FiO2 11/29/17 08:27 100 Nasal Cannula 2 11/29/17 08:05 Nasal Cannula 28 40 11/29/17 08:00 40 11/29/17 08:00 99.1 83 15 122/76 (91) 100 11/29/17 07:25 40 11/29/17 07:00 99 Mechanical Ventilator 30 11/29/17 06:00 78 11/29/17 05:38 80 114/66 11/29/17 04:00 99.1 75 13 115/67 (83) 100 11/29/17 04:00 75 11/29/17 04:00 40 11/29/17 03:54 100 30 11/29/17 02:00 74 11/29/17 01:03 100 30 11/29/17 00:00 40 11/29/17 00:00 98.6 74 14 114/68 (83) 100 11/29/17 00:00 74 11/28/17 22:00 67 11/28/17 20:00 64 11/28/17 20:00 40 11/28/17 20:00 98.6 64 14 106/60 (75) 100 11/28/17 19:58 100 35 11/28/17 19:00 99 Mechanical Ventilator 40 11/28/17 15:22 100 40 11/28/17 12:24 100 50 11/28/17 12:15 100 100 11/28/17 12:00 78 12 118/60 (79) 99 Mechanical Ventilator 118/77 (91) 11/28/17 11:45 97.9 79 12 112/54 (73) 99 Mechanical Ventilator 60 121/81 (94) 11/28/17 11:36 92 12 177/69 (105) 99 Mechanical Ventilator 60 145/85 (105) 11/28/17 11:30 113 12 204/77 (119) 97 Mechanical Ventilator 60 196/131 (152) 11/28/17 11:15 86 12 101/55 (70) 97 Mechanical Ventilator 60 91/73 (79) 11/28/17 11:10 86 12 72/49 (57) 100 Mechanical Ventilator 60 69/53 (58) 11/28/17 11:10 86 69/53 11/28/17 11:05 81 81/59 11/28/17 11:01 79 12 115/56 (75) 100 Mechanical Ventilator 60 107/72 (84) 11/28/17 11:00 82 77/56 11/28/17 10:59 82 12 77/56 (63) 100 Mechanical Ventilator 60 86/63 (71) 11/28/17 10:57 96.8 80 12 77/53 (61) 100 Mechanical Ventilator 60 54/42 (46) Labs: Laboratory Tests Test 11/29/17 04:35 White Blood Count 13.4 TH/MM3 (4.0-11.0) Red Blood Count 3.70 MIL/MM3 (4.00-5.30) Hemoglobin 10.7 GM/DL (11.6-15.3) Hematocrit 30.5 % (35.0-46.0) Mean Corpuscular Volume 82.5 FL (80.0-100.0) Mean Corpuscular Hemoglobin 28.8 PG (27.0-34.0) Mean Corpuscular Hemoglobin Concent 34.9 % (32.0-36.0) Red Cell Distribution Width 15.9 % (11.6-17.2) Platelet Count 209 TH/MM3 (150-450) Mean Platelet Volume 8.9 FL (7.0-11.0) Blood Urea Nitrogen 31 MG/DL (7-18) Creatinine 6.73 MG/DL (0.50-1.00) Random Glucose 84 MG/DL (74-106) Calcium Level 8.1 MG/DL (8.5-10.1) Sodium Level 138 MEQ/L (136-145) Potassium Level 4.6 MEQ/L (3.5-5.1) Chloride Level 104 MEQ/L (98-107) Carbon Dioxide Level 24.5 MEQ/L (21.0-32.0) Anion Gap 10 MEQ/L (5-15) Estimat Glomerular Filtration Rate 7 ML/MIN (>89) Result Diagram: 11/29/17 0435 11/29/17 0435 Simran So MD Nov 29, 2017 10:40
[2017-11-29] MEDS ORDERED: MIDAZOLAM HCL 2 MG/2 ML VIAL ONE (13:29)
--- NOTE | 2017-11-29 13:35 | MP ---
cc: SIMRAN MARIE MD DATE OF SURGERY 11/28/2017 PREOPERATIVE DIAGNOSES Massive bleeding from A-V fistula. Anemia. Hypovolemic shock. Respiratory failure. POSTOPERATIVE DIAGNOSES Massive bleeding from A-V fistula. Anemia. Hypovolemic shock. Respiratory failure. PROCEDURE Repair of the A-V fistula. SURGEON MD Saray ANESTHESIA General. ESTIMATED BLOOD LOSS 20 cc. INDICATIONS FOR PROCEDURE This morbidly obese 72-year-old female came to the ER with massive bleeding from her A-V fistula of the right arm. The patient bled apparently a fair amount and had to be intubated and ventilated. She was taken emergently to the operating room. At the time of arrival, she has a tourniquet on and the fistula is not bleeding. The patient is prepped and draped in the usual fashion and the area exposed. The tourniquet is taken down. This was a very nicely done, mature fistula that has been there for a long time; it is being obviously perfused from the brachial artery distally and the flow is reversed from distal to proximal through the vein and possibly graft segment. It is hard to tell if there is some vein in there or only the graft. Either way, this is very well functioning. In the upper portion of the fistula there is an erosion which is measuring about 1 cm in diameter. As soon as I release the pressure there blood coming out. The pressure is held on the arterial end by the assistant offset press operator and at that point the fistula is not bleeding. The underlying tissue is exposed and closed with 3-0 Prolene on the RB1 needle and then the overlying skin is closed with interrupted 3-0 Prolene. This completely controls the bleed. Flow is now maintained. The patient at the end of the procedure has excellent distal pulses. It is unfortunate but if this bleeds again the patient's fistula may have to be sacrificed. In the meantime the patient will be taken to the ICU for further care and this should not be used for at least a month. Simran CORRALES/GUILLE /11:36 AM /1:25 PM
--- NOTE | 2017-11-29 14:39 | PD.RAD ---
Post Procedure Progress Note Pre Procedure Diagnosis: (1) Hemorrhage of arteriovenous fistula (2) ESRD (end stage renal disease) Post Procedure Diagnosis: (1) Hemorrhage of arteriovenous fistula (2) ESRD (end stage renal disease) Procedure Date: Nov 29, 2017 Supervising Radiologist: Enoch Ayala Estimated blood loss: 5cc Anesthesia: Local Plan of Activity Patient to Unit: ROPU Patient Condition: Fair Additional Comments: Perm cath placed via the left subclavian vein. PT has multiple stents in place on the right side with occluded right IJ. stent is across the origin of the right subclavian vein. Full dictated report to follow See PACS Report for procedural detail/treatment Enoch Ayala MD Nov 29, 2017 14:39
[2017-11-29] MEDS ORDERED: IOHEXOL 350 MG/ML 50 ML BTL (for RAD DIAG) IVCONTRAST ONE (14:41)
[2017-11-29] MEDS ORDERED: HEPARIN SODIUM - IV 2,000 UNITS/2 ML VIAL IV FLUSH PRN (14:45)
--- NOTE | 2017-11-29 15:08 | RADRPT ---
EXAM DATE/TIME: 11/29/2017 13:11 [facility] COMPARISON: VENOGRAM, SUPERIOR VENA CAVA, November 29, 2017, 0:00. INDICATIONS : Patient with a history renal failure. MEDICAL HISTORY : ESRD CHF Diabetes HTN Dypsnea Seizures SURGICAL HISTORY : Right AVF Tubal ligation ENCOUNTER: Initial ACUITY: 1 day PAIN SCORE: 5/10 LOCATION: low back FLUORO TIME: 3.1 minutes IMAGE SERIES: 3 SEDATION TIME: 30 minutes CONTRAST: 10 cc Omnipaque (iohexol) 350 ACCESS: Left subclavian vein SEDATION: 1.) 3 mg midazolam (Versed) IV 2.) 200 mcg fentanyl (Sublimaze) IV Prophylactic antibiotics were administered with appropriate pre-procedure timing. Vancomycin within 2 hours of procedure, Ancef (or alternative) within 1 hour of procedure. DEVICE: 1. 15 Beninese dual lumen 23 cm Permacath PROCEDURE : 1. Ultrasound-guided venipuncture. 2. PermaCath placement. 3. Conscious sedation with continuous EKG and oximetry monitoring. The risks, benefits and alternatives to the procedure were explained and verbal and written consent w as obtained. The patient was evaluated with fluoroscopy prior to the procedure. There were stents in place within the right cephalic vein and the distal right jugular vein breaking down to the SVC across the origin of the right subclavian. The decision was made to place a catheter via the left subclavian vein. The site was prepped in sterile fashion. Full sterile technique was used, including cap, mask, steri le gloves and gown and a large sterile sheet. Hand hygiene and 2% chlorhexidine and/or betadine/alco hol prep was utilized per protocol for cutaneous antisepsis. Sterile gel and sterile probe cover wer e utilized for ultrasound guidance. The skin and subcutaneous tissues were infiltrated with local an esthetic solution. With ultrasound and fluoroscopic guidance a dermatotomy was created over the left subclavian vein. A micropuncture set was used to access the targeted vein and mammography was performed. This demonstra dawna the left subclavian vein and the central SVC to be patent. serial dilatation was performed to acc ept the prescribed length catheter. A subcutaneous tunnel was created in a retrograde fashion the ca theter was pulled through the tunnel. The catheter was flushed and assembled and locked with heparin . The catheter was sutured in place. Conscious sedation was performed with the prescribed dosages and duration as above in the presence of an independent trained radiology nurse to assist in the monitoring of the patient. EKG and oximetry remained stable throughout the procedure. The patient tolerated the procedure well and there were n o complications. The patient was sent to post anesthesia recovery in stable condition. CONCLUSION: Uncomplicated PermaCath placement as above. Enoch Ayala MD on November 29, 2017 at 15:04 Board Certified Radiologist. This report was verified electronically.
[2017-11-30] VITALS (13 sets, daily range): BP systolic 110–148; BP diastolic 60–76; PULSE 91–113; RESP 18–20; TEMP 97.8–99.4; O2SAT 94–99
[2017-11-30] MEDS: FAMOTIDINE 20 MG/2 ML VIAL IV PUSH SCH ×2 (00:04→21:13)
[2017-11-30] MEDS: RESP: ALBUTEROL 2.5 MG/IPRATROPIUM 0.5 MG NEB (SCH) INH ×4 (04:37→20:37)
[2017-11-30] MEDS: INSULIN NovoLIN REGULAR SUPPLEMENTAL SCALE SQ SCH ×5 (06:00→23:47)
[2017-11-30 07:01] LABS: HEMATOCRIT 27.3 % (35.0-46.0); HEMOGLOBIN 9.4 GM/DL (11.6-15.3); MEAN CORPUSCULAR HGB CONC 34.6 % (32.0-36.0); PLATELET COUNT 168 TH/MM3 (150-450); RED BLOOD COUNT 3.25 MIL/MM3 (4.00-5.30); RED CELL DISTRIBUTION WIDTH 15.7 % (11.6-17.2); WHITE BLOOD COUNT 13.9 TH/MM3 (4.0-11.0)
[2017-11-30 07:55] LABS: CALCIUM 8.7 MG/DL (8.5-10.1); CREATININE 8.17 MG/DL (0.50-1.00)
[2017-11-30] MEDS: HEPARIN SODIUM - SQ 10,000 UNITS/ML VIAL SQ SCH ×2 (09:15→21:13)
[2017-11-30] MEDS: DOCUSATE SODIUM 50 MG/SENNA 8.6 MG TAB PO SCH ×2 (09:22→21:12)
--- NOTE | 2017-11-30 10:14 | HHI.NPPN ---
Subjective General Problems: Anemia Renal Failure: Chronic, End Stage Renal Disease Interval History Moved out of [facility]. Permcath placed yesterday. Due for dialysis. (Laura Givens) Review of Systems General Constitutional: Fatigue (Laura Givens) Objective Data Data Vital Signs Date Time Temp Pulse Resp B/P (MAP) Pulse Ox O2 Delivery O2 Flow Rate FiO2 11/30/17 08:33 94 11/30/17 04:35 99.4 111 18 130/76 (94) 99 11/30/17 04:10 103 11/30/17 00:08 98 11/29/17 23:32 98.9 104 18 110/72 (85) 96 11/29/17 22:17 95 11/29/17 21:50 99.3 87 18 114/58 (76) 96 11/29/17 16:00 99.1 86 18 144/66 (92) 94 11/29/17 12:10 100 Nasal Cannula 2.00 (Laura Givens) -: 11/30/17 0600 11/30/17 0600 Imaging Last 72 hours Impressions Catheter Placement X-Ray 11/29/17 0000 Signed Impressions: Service Date/Time: Wednesday, November 29, 2017 13:11 - CONCLUSION: Uncomplicated PermaCath placement as above. Enoch Ayala MD Chest X-Ray 11/28/17 0000 Signed Impressions: Service Date/Time: Tuesday, November 28, 2017 11:28 - CONCLUSION: Endotracheal tube appears appropriate in position. The line overlying the middle mediastinum may represent a temperature probe. If this is a nasogastric tube and interval advancement is required.. Holly Cochran MD Tubes & Lines: Perma-Cath, Vas-Cath (Laura Givens) Physical Exam General Appearance: Well Developed, No Acute Distress, Comfortable (Laura Givens) Throat Throat Exam: Oral Mucosa [place] & Moist (Laura Givens) Pulmonary Resp Exam: Clear Bilaterally, Breath Sounds Equal (Laura Givens) Cardiology CV Exam: Regular, Normal Sinus Rhythm (Laura Givens) Gastrointestinal/Abdomen GI Exam: Soft, Non-Tender, Bowel Sounds Present (Laura Givens) Musculoskeletal MS Exam: Joints Intact, Normal Tone (Laura Givens) Integumentary Skin Exam: Warm, Dry (Laura Givens) Extremeties Extremities Exam: Pedal Pulses Palpable, Trace Edema (Laura Givens) Neurologic Neuro Exam: Alert, Awake, Oriented, Speech Clear, Moving All Extremities (Laura Givens) Psychiatric Psych Exam: Appropriate Responses (Laura Givens) Assessment/Plan Discussed Condition With: Patient Assessment Summary: End Stage Renal Disease Problem List: (1) ESRD (end stage renal disease) ICD Codes: N18.6 - End stage renal disease Plan: HD TTS, due today s/p permcath placement, will remove vascath today. Start phosphate binder therapy Avoid IVF administration [place] removed (2) Hemorrhage of arteriovenous fistula ICD Codes: T82.838A - Hemorrhage due to vascular prosthetic devices, implants and grafts, initial encounter Status: Acute Plan: Vascular repaired, it was not ligated Will need rest and follow up (3) Anemia ICD Codes: D64.9 - Anemia, unspecified Plan: Transfused urgently Hb is acceptable (Laura Givens) Problem List: (1) ESRD (end stage renal disease) ICD Codes: N18.6 - End stage renal disease Plan: HD TTS, due today s/p permcath placement, will remove vascath today. Start phosphate binder therapy Avoid IVF administration [place] removed (2) Hemorrhage of arteriovenous fistula ICD Codes: T82.838A - Hemorrhage due to vascular prosthetic devices, implants and grafts, initial encounter Status: Acute Plan: Vascular repaired, it was not ligated Will need rest and follow up (3) Anemia ICD Codes: D64.9 - Anemia, unspecified Plan: Transfused urgently Hb is acceptable Plan patient was seen and examined. Agree with above assessment and plan. (Redd Dias MD) Problem Qualifiers (1) Hemorrhage of arteriovenous fistula: Qualified Codes: T82.838A - Hemorrhage due to vascular prosthetic devices, implants and grafts, initial encounter Laura Givens Nov 30, 2017 10:14 Redd Dias MD Nov 30, 2017 10:27
[2017-11-30] MEDS: SEVELAMER CARBONATE 800 MG TAB PO SCH ×2 (12:00→17:32)
[2017-11-30] MEDS ORDERED: EPOETIN ALFA 4,000 UNITS/ML VIAL IV ONE (12:00)
--- NOTE | 2017-11-30 15:01 | HHI.PR ---
Subjective Remarks Patient seen after dialysis. She reports feeling very fatigued. No other issues. Objective Vitals Vital Signs Date Time Temp Pulse Resp B/P (MAP) Pulse Ox O2 Delivery O2 Flow Rate FiO2 11/30/17 12:08 97.8 99 20 132/60 (84) 97 11/30/17 11:30 94 Room Air 11/30/17 10:28 103 11/30/17 08:33 94 11/30/17 08:10 98.8 106 20 148/60 (89) 95 11/30/17 04:35 99.4 111 18 130/76 (94) 99 11/30/17 04:10 103 11/30/17 00:08 98 11/29/17 23:32 98.9 104 18 110/72 (85) 96 11/29/17 22:17 95 11/29/17 21:50 99.3 87 18 114/58 (76) 96 11/29/17 16:00 99.1 86 18 144/66 (92) 94 I/O 11/29/17 11/29/17 11/29/17 11/30/17 11/30/17 11/30/17 07:00 15:00 23:00 07:00 15:00 23:00 Intake Total 700 ml 340 ml 0 ml Output Total 30 ml 0 ml 275 ml 3000 ml Balance 670 ml 340 ml -275 ml -3000 ml Intake Oral 340 ml 0 ml IV Total 700 ml Output Urine Total 30 ml 0 ml 275 ml Hemodialysis 3000 ml # Bowel Movements 0 0 Result Diagram: 11/30/17 0600 11/30/17 0600 Objective Remarks GENERAL: Chronically ill-appearing, in no apparent distress. CARDIOVASCULAR: Normal rate and regular rhythm without murmurs, gallops, or rubs. RESPIRATORY: Good respiratory efforts. Breath sounds equal and clear to auscultation bilaterally. GASTROINTESTINAL: Abdomen soft, non-tender, non-distended. Normal active bowel sounds MUSCULOSKELETAL: Right upper extremity is wrapped. Dressing appear intact. NEURO: Alert & Oriented x4 to person, place, time, situation. Moves all ext x4 PSYCH: Appropriate mood and affect. A/P Assessment and Plan 72-year-old female with end-stage renal disease and old AV fistula in the right arm with ulcerated area with active arterial hemorrhage, now s/p emergent fistula repair on 11/28. Hemorrhage of arteriovenous fistula: - Patient is status post vascular repair. - Continue to monitor closely. - Status post permacath placement for hemodialysis. - Appreciate vascular surgery and nephrology following. End-stage renal disease on hemodialysis: -Hemodialysis per nephrology Wednesday, , and Wednesday. Phosphate binders ordered. Avoid IVF. Acute blood loss anemia: Secondary to AV fistula hemorrhage as above. Status post 1 unit of PRBC transfusion. - H&H acceptable. Monitor as needed. SCDs, heparin for DVT prophylaxis. pepcid. Discharge Planning Clinically and by vascular surgery and nephrology. PT to eval tomorrow morning. Crystal Vargas MD Nov 30, 2017 15:01
--- NOTE | 2017-11-30 16:02 | PD.CAR.PN ---
CVT Progress Note Subjective/Hospital Course: 11/29/2017 Patient is status post repair of a torn right arm AV fistula Unfortunately there are a number of areas along the graft which are now bulging out and the results of regular graft use As the time goes by eventually even the best grafts will have to be sacrificed At this point this looks okay and I will keep the dressing on for another day then we going to look if this is healing nicely In the meantime patient will need different access for dialysis in the form of a temporary indwelling catheter I discussed this with Dr. Handley who constructed this long-lasting graft and he will come by Nothing to add to care right now 11/30/2017 Incision is clean and dry Dressing to be changed daily AV fistula cannot be used for at least a month until this completely heals Unfortunately recurrent bleeding is not uncommon in this situation due to the poor tissue healing and irreversible nature of the graft to damage If that should occur then the fistula will need to be sacrificed Objective: Vital Signs Date Time Temp Pulse Resp B/P (MAP) Pulse Ox O2 Delivery O2 Flow Rate FiO2 11/30/17 12:08 97.8 99 20 132/60 (84) 97 11/30/17 11:30 94 Room Air 11/30/17 10:28 103 11/30/17 08:33 94 11/30/17 08:10 98.8 106 20 148/60 (89) 95 11/30/17 04:35 99.4 111 18 130/76 (94) 99 11/30/17 04:10 103 11/30/17 00:08 98 11/29/17 23:32 98.9 104 18 110/72 (85) 96 11/29/17 22:17 95 11/29/17 21:50 99.3 87 18 114/58 (76) 96 Labs: Laboratory Tests Test 11/30/17 06:00 White Blood Count 13.9 TH/MM3 (4.0-11.0) Red Blood Count 3.25 MIL/MM3 (4.00-5.30) Hemoglobin 9.4 GM/DL (11.6-15.3) Hematocrit 27.3 % (35.0-46.0) Mean Corpuscular Volume 84.0 FL (80.0-100.0) Mean Corpuscular Hemoglobin 29.0 PG (27.0-34.0) Mean Corpuscular Hemoglobin Concent 34.6 % (32.0-36.0) Red Cell Distribution Width 15.7 % (11.6-17.2) Platelet Count 168 TH/MM3 (150-450) Mean Platelet Volume 9.0 FL (7.0-11.0) Blood Urea Nitrogen 44 MG/DL (7-18) Creatinine 8.17 MG/DL (0.50-1.00) Random Glucose 87 MG/DL (74-106) Calcium Level 8.7 MG/DL (8.5-10.1) Sodium Level 138 MEQ/L (136-145) Potassium Level 4.5 MEQ/L (3.5-5.1) Chloride Level 105 MEQ/L (98-107) Carbon Dioxide Level 23.0 MEQ/L (21.0-32.0) Anion Gap 10 MEQ/L (5-15) Estimat Glomerular Filtration Rate 6 ML/MIN (>89) Result Diagram: 11/30/17 0600 11/30/17 0600 Simran So MD Nov 30, 2017 16:02
[2017-12-01] VITALS: BP 109/70; PULSE 99; RESP 18; TEMP 98.7; O2SAT 100
[2017-12-01 00:06] VITALS: PULSE 110
[2017-12-01] MEDS: RESP: ALBUTEROL 2.5 MG/IPRATROPIUM 0.5 MG NEB (SCH) INH ×3 (03:50→15:35)
[2017-12-01 04:00] VITALS: BP 120/55; PULSE 100; PULSE 99; RESP 18; TEMP 99; O2SAT 95
[2017-12-01] MEDS: CHLORHEXIDINE GLUCONATE 2 % 1 PACK (2 CLOTHS) TOP SCH (04:00)
[2017-12-01] MEDS: INSULIN NovoLIN REGULAR SUPPLEMENTAL SCALE SQ SCH ×2 (05:53→11:44)
[2017-12-01 05:56] LABS: HEMATOCRIT 25.2 % (35.0-46.0); HEMOGLOBIN 8.7 GM/DL (11.6-15.3); MEAN CELL VOLUME 83.7 FL (80.0-100.0); MEAN CORPUSCULAR HEMOGLOBIN 28.8 PG (27.0-34.0); MEAN CORPUSCULAR HGB CONC 34.4 % (32.0-36.0); PLATELET COUNT 154 TH/MM3 (150-450); RED BLOOD COUNT 3.01 MIL/MM3 (4.00-5.30); RED CELL DISTRIBUTION WIDTH 15.4 % (11.6-17.2); WHITE BLOOD COUNT 14.2 TH/MM3 (4.0-11.0)
[2017-12-01 06:15] LABS: BICARBONATE 25.5 MEQ/L (21.0-32.0); CALCIUM 8.8 MG/DL (8.5-10.1); CREATININE 6.83 MG/DL (0.50-1.00)
[2017-12-01 08:00] VITALS: BP 133/63; PULSE 92; PULSE 95; RESP 18; TEMP 98.8; O2SAT 95
[2017-12-01 08:27] VITALS: O2SAT 95
[2017-12-01] MEDS: HEPARIN SODIUM - SQ 10,000 UNITS/ML VIAL SQ SCH (08:32)
[2017-12-01] MEDS: SEVELAMER CARBONATE 800 MG TAB PO SCH ×2 (08:32→12:13)
[2017-12-01] MEDS: DOCUSATE SODIUM 50 MG/SENNA 8.6 MG TAB PO SCH (08:32)
--- NOTE | 2017-12-01 10:17 | HHI.NPPN ---
Subjective General Problems: Anemia Renal Failure: Chronic, End Stage Renal Disease Interval History Resting, states she does not feel well but cannot articulate complaints. Wound consult pending. Dialyzed yesterday. Review of Systems General Constitutional: Fatigue Objective Data Data Vital Signs Date Time Temp Pulse Resp B/P (MAP) Pulse Ox O2 Delivery O2 Flow Rate FiO2 12/01/17 10:02 Room Air 12/01/17 08:27 95 12/01/17 08:00 98.8 92 18 133/63 (86) 95 12/01/17 04:00 Room Air 12/01/17 04:00 100 12/01/17 04:00 99.0 99 18 120/55 (76) 95 12/01/17 00:06 110 12/01/17 00:00 Room Air 12/01/17 00:00 98.7 99 18 109/70 (83) 100 11/30/17 20:38 96 11/30/17 20:30 Room Air 11/30/17 20:08 108 11/30/17 20:00 98.7 91 18 110/69 (83) 95 11/30/17 16:08 98.0 100 20 132/62 (85) 95 11/30/17 16:00 113 11/30/17 12:08 97.8 99 20 132/60 (84) 97 11/30/17 12:00 106 11/30/17 11:30 94 Room Air 11/30/17 10:28 103 -: 12/01/17 0530 12/01/17 0530 Imaging Last 72 hours Impressions Catheter Placement X-Ray 11/29/17 0000 Signed Impressions: Service Date/Time: Wednesday, November 29, 2017 13:11 - CONCLUSION: Uncomplicated PermaCath placement as above. Enoch Ayala MD Tubes & Lines: Perma-Cath, Vas-Cath Physical Exam General Appearance: Well Developed, No Acute Distress, Comfortable Throat Throat Exam: Oral Mucosa [place] & Moist Pulmonary Resp Exam: Clear Bilaterally, Breath Sounds Equal Cardiology CV Exam: Regular, Normal Sinus Rhythm Gastrointestinal/Abdomen GI Exam: Soft, Non-Tender, Bowel Sounds Present Musculoskeletal MS Exam: Joints Intact, Normal Tone Integumentary Skin Exam: Warm, Dry Extremeties Extremities Exam: Pedal Pulses Palpable, Trace Edema Neurologic Neuro Exam: Alert, Awake, Oriented, Speech Clear, Moving All Extremities Psychiatric Psych Exam: Appropriate Responses Assessment/Plan Discussed Condition With: Patient Assessment Summary: End Stage Renal Disease Problem List: (1) ESRD (end stage renal disease) ICD Codes: N18.6 - End stage renal disease Plan: HD TTS, 3L UF yesterday s/p permcath placement Needs vascath removal however the 3rd lumen is being used as IV Increase Renvela with meals Avoid IVF administration Outpatient HD arrangements exist for discharge purposes (2) Hemorrhage of arteriovenous fistula ICD Codes: T82.838A - Hemorrhage due to vascular prosthetic devices, implants and grafts, initial encounter Status: Acute Plan: Vascular repaired, it was not ligated Will need rest and follow up (3) Anemia ICD Codes: D64.9 - Anemia, unspecified Plan: Hb is lower Epogen with dialysis Plan Cleared for discharge from renal perspective Problem Qualifiers (1) Hemorrhage of arteriovenous fistula: Qualified Codes: T82.838A - Hemorrhage due to vascular prosthetic devices, implants and grafts, initial encounter Laura Givens Dec 01, 2017 10:17
[2017-12-01] MEDS ORDERED: EPOETIN ALFA 10,000 UNITS/ML VIAL IV PUSH PRN (10:30)
[2017-12-01 12:00] VITALS: BP 127/60; PULSE 89; PULSE 92; RESP 20; TEMP 98.4; O2SAT 95
--- NOTE | 2017-12-01 13:18 | HHI.DS ---
Discharge Summary Admission Date Nov 28, 2017 at 09:20 Discharge Date: Dec 01, 2017 Admitting Diagnosis right AV fistula bleed, hypotension (1) ESRD (end stage renal disease) on dialysis ICD Code: N18.6 - End stage renal disease; Z99.2 - Dependence on renal dialysis (2) Dialysis AV fistula malfunction ICD Code: T82.590A - Other mechanical complication of surgically created arteriovenous fistula, initial encounter (3) ESRD (end stage renal disease) ICD Code: N18.6 - End stage renal disease (4) HTN (hypertension) ICD Code: I10 - Essential (primary) hypertension (5) Anemia ICD Code: D64.9 - Anemia, unspecified Procedures AV fistula repair Brief History - From Admission HPI from the admitting physician 72 Y/O F with history of ESRD and right arm AVF presented for bleeding from the fistula. Unfortunately, due to the emergent nature of the consult, a complete medical history is unobtainable. I was in the Emergency department when Dr. Gottlieb asked me to assist in this acutely unstable patient. She began rebleeding from the AVF. Her family was quite upset and actually impeding our ability to safely care for the patient, and they were escorted out of the room by security. When we were able to get to the patient, there was at least 1L of blood loss on the floor from an actively bleeding AVF. Immediate pressure was held. patient had lost enough blood that she was hypotensive, hemodynamically unstable, and obtunded. Dr. Gottlieb emergently controlled the airway and intubated the patient. I managed the hemodynamics of the patient, emergently placing introducer sheath for large bore volume access, ordering emergency release 2 units prbc. We notified Dr. Jaramillo and emergently transferred the patient to the OR for surgical hemostasis. No additional information is available from the patient due to her clinical condition. CBC/BMP: 12/01/17 0530 12/01/17 0530 Significant Findings Laboratory Tests Test 11/28/17 20:36 11/29/17 04:35 11/30/17 06:00 12/01/17 05:30 Hemoglobin 10.9 GM/DL (11.6-15.3) 10.7 GM/DL (11.6-15.3) 9.4 GM/DL (11.6-15.3) 8.7 GM/DL (11.6-15.3) Hematocrit 32.2 % (35.0-46.0) 30.5 % (35.0-46.0) 27.3 % (35.0-46.0) 25.2 % (35.0-46.0) White Blood Count 13.4 TH/MM3 (4.0-11.0) 13.9 TH/MM3 (4.0-11.0) 14.2 TH/MM3 (4.0-11.0) Red Blood Count 3.70 MIL/MM3 (4.00-5.30) 3.25 MIL/MM3 (4.00-5.30) 3.01 MIL/MM3 (4.00-5.30) Blood Urea Nitrogen 31 MG/DL (7-18) 44 MG/DL (7-18) 34 MG/DL (7-18) Creatinine 6.73 MG/DL (0.50-1.00) 8.17 MG/DL (0.50-1.00) 6.83 MG/DL (0.50-1.00) Calcium Level 8.1 MG/DL (8.5-10.1) Estimat Glomerular Filtration Rate 7 ML/MIN (>89) 6 ML/MIN (>89) 7 ML/MIN (>89) Phosphorus Level 6.2 MG/DL (2.5-4.9) Imaging Last Impressions Catheter Placement X-Ray 11/29/17 0000 Signed Impressions: Service Date/Time: Wednesday, November 29, 2017 13:11 - CONCLUSION: Uncomplicated PermaCath placement as above. Enoch Ayala MD Chest X-Ray 11/28/17 0000 Signed Impressions: Service Date/Time: Tuesday, November 28, 2017 11:28 - CONCLUSION: Endotracheal tube appears appropriate in position. The line overlying the middle mediastinum may represent a temperature probe. If this is a nasogastric tube and interval advancement is required.. Holly Cochran MD PE at Discharge GENERAL: Chronically ill-appearing, in no apparent distress. CARDIOVASCULAR: Normal rate and regular rhythm without murmurs, gallops, or rubs. RESPIRATORY: Good respiratory efforts. Breath sounds equal and clear to auscultation bilaterally. GASTROINTESTINAL: Abdomen soft, non-tender, non-distended. Normal active bowel sounds MUSCULOSKELETAL: Right upper extremity is wrapped. Dressing appear intact. NEURO: Alert & Oriented x4 to person, place, time, situation. Moves all ext x4 PSYCH: Appropriate mood and affect. Pt update on day of discharge Patient reports she is feeling much better today. She wants to go home to be with her children. Hospital Course 72-year-old female with end-stage renal disease and old AV fistula in the right arm with ulcerated area with active arterial hemorrhage, patient was emergently intubated in the ED. She underwent emergent fistula repair on 11/28. Treatment course as followed: Hemorrhage of arteriovenous fistula: - Patient is status post vascular repair. - Status post permacath placement for hemodialysis. -Patient followed by vascular surgery and Nephrology. DW Vascular surgery prior to DC. Patient advised to follow up outpatient with Dr. Handley. She is aware that she is still at risk for bleeding. Daily dressing changes with Home health. Acute respiratory failure: Intubated in ED. Successfully extubated during ICU course and was back on room air by the time of discharge. End-stage renal disease on hemodialysis: -Patient managed by Nephrology. Hemodialysis Wednesday, , and Wednesday. Chronic foot wound: Patient was followed by wound care. Acute blood loss anemia: Secondary to AV fistula hemorrhage as above. Status post 1 unit of PRBC transfusion. - H&H acceptable. Pt Condition on Discharge: Good Discharge Disposition: Disch w/ Home Health Serv Discharge Time: > 30 minutes Discharge Instructions DIET: Follow Instructions for: Renal Failure Diet Activities you can perform: Regular-No Restrictions Follow up Referrals: Appointment for Follow Up @ [facility] Appointment for Follow Up @ [facility] Nephrology - 2-3 Days with Redd Dias MD [facility]/ with nurse transportation planning engineer Vascular Surgery - 2 Weeks with Marin Handley MD Continued Medications: Cholecalciferol (Vitamin D3) 2,000 Unit Cap 2000 UNITS PO DAILY for Nutritional Supplement, #1 BOTTLE 0 Refills Cinacalcet (Sensipar) 90 Mg Tab 90 MG PO DAILY, #30 TAB 0 Refills Furosemide (Furosemide) 40 Mg Tab 40 MG PO DAILY, #30 TAB 0 Refills Metoprolol Tartrate (Metoprolol Tartrate) 100 Mg Tab 100 MG PO DAILY, #30 TAB 0 Refills Sevelamer Carbonate (Renvela) 800 Mg Tab 800 MG PO TID for Control phosphorous levels, #90 TAB 0 Refills Sodium Bicarbonate (Sodium Bicarbonate) 650 Mg Tab 650 MG PO BIDPC, #60 TAB 0 Refills Crystal Vargas MD Dec 01, 2017 13:18
--- NOTE | 2017-12-01 13:18 | HHI.FF ---
Face to Face Verification Diagnosis: (1) HTN (hypertension) (2) Hemorrhage of arteriovenous fistula (3) Anemia (4) ESRD (end stage renal disease) Physical Therapy Order: Evaluate and Treat, Improve ambulation, Strength and gait training Home Health Nursing Order: Medical education Signs/symptoms of disease process Wound care and dressing changes (Daily dressing changes, right arm with kirlix and VICENTE. Foot dressing per wound care. ) Nursing assessment with vital signs I have seen patient Kaylah Huertas on 12/01/17. My clinical findings support the need for the requested home health care services because: Ltd mobility - disease progression Deconditioned w/ increased weakness Limited ability to care for self Need for psychosocial assistance High risk of falls I certify that my clinical findings support that this patient is homebound because: Unsteady gait/balance Need for psychosocial assistance Crystal Vargas MD Dec 01, 2017 13:18
--- NOTE | 2017-12-01 14:46 | PD.WCN.NOT ---
Wound Consult Description: Wound consult ordered by for foot Communicated with: Barbara BLACKMON [address] [place] [address] , Recommendation: 1) Encourage patient to inspect feet daily use mirror if necessary 2) Perform shaving cream therapy to bilateral extremities x3 days 3) Cleanse right lower extremity with normal saline pat dry,skin prep corie wound 4) Apply Opti foam basic to open area secure with rolled gauze/tape 5) Change every 5 days or as needed for exudate management Additional Information: Patient was seen today on by travel writer and Barbara BLACKMON , Patient alert in chair upon travel writer arrival .Dressing removed from R lower extremity to expose hypergranulated progressively healing full thickness wound that measures ~7.6cm x ~6.3cm x beefy red hypergranulated tissue.Wound base is 100% beefy red tissue .Wound edges noted to have newly epithelialized tissue growth moderate serosanguineous drainage noted with no odor present.Shaving cream therapy perform to loosen dry crusting skin to bilateral plantar feet. Wound cleansed with normal saline and pat dry.Skin prep applied to periwound covered with Opti foam basic and secured with rolled gauze/tape.Sign and dated .Patient tolerated wound care well. Constantine Li [facility] Dec 01, 2017 14:46
== END 2017-12-01 16:46 | disposition home health service (06) | DRG 252 ==
LOC: NEPC 07:45 → NEDA 09:20 → N03B 12:16 → N04B 11-29 21:15
PROVIDERS: ADMIT Family Medicine; ATTEND Family Medicine
PROC: 5A1935Z Respiratory Ventilation, Less than 24 Consecutive Hours (ICD-10-PCS; 2017-11-28)
PROC: 0BH17EZ Insertion of Endotracheal Airway into Trachea, Via Natural or Artificial Opening (ICD-10-PCS; 2017-11-28)
PROC: 30233N1 Transfusion of Nonautologous Red Blood Cells into Peripheral Vein, Percutaneous Approach (ICD-10-PCS; 2017-11-28)
PROC: 05HN33Z Insertion of Infusion Device into Left Internal Jugular Vein, Percutaneous Approach (ICD-10-PCS; 2017-11-28)
PROC: B544ZZA Ultrasonography of Left Jugular Veins, Guidance (ICD-10-PCS; 2017-11-28)
PROC: 05QY0ZZ Repair Upper Vein, Open Approach (ICD-10-PCS; principal; 2017-11-28 09:40)
PROC: 05H633Z Insertion of Infusion Device into Left Subclavian Vein, Percutaneous Approach (ICD-10-PCS; 2017-11-29)
PROC: B5171ZA Fluoroscopy of Left Subclavian Vein using Low Osmolar Contrast, Guidance (ICD-10-PCS; 2017-11-29)
PROC: 5A1D70Z Performance of Urinary Filtration, Intermittent, Less than 6 Hours Per Day (ICD-10-PCS; 2017-11-30)
DX: T82.838A Hemorrhage due to vascular prosthetic devices, implants and grafts, initial encounter (principal); N18.6 End stage renal disease; R57.8 Other shock; G93.41 Metabolic encephalopathy; I13.2 Hypertensive heart and chronic kidney disease with heart failure and with stage 5 chronic kidney disease, or end stage renal disease; J96.01 Acute respiratory failure with hypoxia; J96.02 Acute respiratory failure with hypercapnia; D62 Acute posthemorrhagic anemia; D69.1 Qualitative platelet defects; E11.22 Type 2 diabetes mellitus with diabetic chronic kidney disease; I50.9 Heart failure, unspecified; Z99.2 Dependence on renal dialysis; R56.9 Unspecified convulsions; E66.9 Obesity, unspecified; Z68.36 Body mass index [BMI] 36.0-36.9, adult; E88.89 Other specified metabolic disorders; S91.301A Unspecified open wound, right foot, initial encounter; X58.XXXA Exposure to other specified factors, initial encounter
CPT/HCPCS: 31500; 36430; 36558; 71045; 76937; 77001; 80048; 82805; 82948; 84100; 85014; 85018; 85025; 85027; 85610; 85730; 86850; 86900; 86901; 86920; 87641; 90935; 94002; 94003; 94150; 94640; 94664; 94667; 94668; 96374; 96375; 99152; 99153; C1750; C1769; J0690; J1580; J1644; J2250; J2370; J2597; J2720; J3010; J3370; J7030; J7050; J7060; J7120; P9016; P9021; Q4081; Q9967